=== PATIENT | female | born 1990 | race Two or more races ===

== ENCOUNTER 2023-08-15 19:45 | Emergency (ER) | payer MEDICAID, OTHER ==
[~2023-08-15] VITALS: Ht 157.5 cm; Wt 55.0 kg
[~2023-08-15 19:45] MED LIST: DENIES HOME MEDS
[2023-08-15 20:05] VITALS: BP 128/83; PULSE 98; RESP 16; O2SAT 97
[2023-08-15 21:10] LABS: Urine Bacteria NONE SEEN /hpf (None Seen); Urine Blood Negative /uL (Negative); Urine Clarity Clear (Clear); Urine Color Colorless (Yellow); Urine Protein, UAD Negative (Negative); Urine Specific Gravity 1.021 (1.001-1.035); Urine Urobilinogen Normal (Negative); Urine WBC 1 /hpf (0 - 5)
[2023-08-15] MEDS ORDERED: KETOROLAC TROMETH 30 MG/ML 1ML VIAL IM ONE (23:15)
[2023-08-15] MEDS ORDERED: IBUP-1456 PO (23:36)
== END 2023-08-15 23:27 | disposition left against medical advice (07) ==
LOC: ER 19:45
DX: N94.89 Other specified conditions associated with female genital organs and menstrual cycle (principal); Z87.891 Personal history of nicotine dependence
CPT/HCPCS: 81001